=== PATIENT | female | born 1970 | race Caucasian/White ===

== ENCOUNTER 2020-10-07 20:03 | Outpatient (REF) | payer MEDICAID, OTHER, SELFPAY ==
--- NOTE | ~2020-10-07 | MR_ITS ---
EXAMINATION: MR ANGIOGRAPHY BRAIN WITHOUT CONTRAST CLINICAL INFORMATION: Cerebral aneurysm. COMPARISON: MRA head from 04/24/2017. TECHNIQUE: 3D [id number] MR angiography was performed through the brain without the use of intravenous gadolinium and axial source images were reviewed along with rotating MIPs. FINDINGS: Normal flow-related signal within the anterior circulation without evidence of focal stenosis or occlusion of the intradural internal carotid, middle cerebral, or anterior cerebral arteries. Normal flow-related signal within the posterior circulation without evidence of focal stenosis or occlusion of the intradural vertebral, basilar, superior cerebellar, or posterior cerebral arteries. Stable appearance of a 0.2 cm excrescence arising from the origin of the left posterior communicating artery. No additional intracranial aneurysms. No additional significant abnormalities on limited evaluation of the intracranial structures. MR/MR angio head wo con IMPRESSION: 1. 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 2. Otherwise, MRA of the head without proximal occlusion, flow-limiting stenosis, or additional intracranial aneurysm.
== END 2020-10-07 20:04 | disposition home or self-care (01) ==
LOC: HO.MRI 20:03
PROVIDERS: Visit Provider Pediatrics
DX: I67.1 Cerebral aneurysm, nonruptured (principal)
CPT/HCPCS: 70544

== ENCOUNTER 2021-08-14 11:10 | Emergency (ER) | payer MEDICAID, OTHER, SELFPAY ==
[2021-08-14 12:29] VITALS: BP 142/65; PULSE 64; RESP 18; TEMP 36.2; O2SAT 98; BMI 29.7
--- NOTE | 2021-08-14 17:45 | ED.BACK ---
HPI - Back Pain/Injury General Chief Complaint: Back Pain/Injury Stated Complaint: back pain Time Seen by Provider: 08/14/21 17:45 Source: patient Mode of arrival: ambulatory Limitations: no limitations History of Present Illness HPI Narrative: 50-year-old female no significant medical history presenting to the emergency department complaints of lower back pain times 2 days. Patient tells me that this started after she received a back massage and after lifting her grandchildren. She reports that the pain is to her lower back, feels like a tightness/discomfort. She tells me that when she moves it is worse and walking makes it worse, immobilization makes it better. She denies any spinal procedures, not an IV drug abuser. She denies numbness, tingling, bowel/urinary incontinence/retention, chest pain, shortness of breath, fevers, chills, nausea, vomiting, weakness, changes in urination. Denies recent trauma MD elicited complaint: back pain Timing: constant Severity: mild Quality: aching Location: lumbar spine Radiation: none Exacerbating factors: none Relieving factors: none Context: other (After massage) Associated symptoms: denies other symptoms Work related injury: No Related Data Previous Rx's Medication Instructions Recorded cyclobenzaprine 10 mg tablet 10 mg PO BEDTIME PRN #7 tab 08/14/21 lidocaine 5 % topical patch 1 patch TOPICAL DAILY PRN #15 ea 08/14/21 naproxen 500 mg tablet 500 mg PO BID PRN #14 tab 08/14/21 Allergies Allergy/AdvReac Type Severity Reaction Status Date / Time No Known Allergies Allergy Verified 08/14/21 12:28 Review of Systems Review of Systems: Constitutional : No Weight loss, No Fever, No Chills, No Fatigue, No Malaise ENT/Mouth : No sore throat, No Rhinorrhea Eyes: No Eye Pain, No Swelling, No Redness Cardiovascular : No Chest Pain, No SOB, No Dyspnea on Exertion, No Orthopnea, No Edema, No Palpitations Respiratory : No Cough, No Sputum, No Wheezing Gastrointestinal : No Nausea, No Vomiting, No Diarrhea, No Constipation, No abdominal Pain, No Hematochezia, No Melena Genitourinary : No Dysuria, No Urinary Frequency, No Hematuria, Musculoskeletal : + joint pain, No Myalgias, No Joint Swelling Skin : No Skin Lesions, No rash Neuro : No Weakness, No Numbness, No Dizziness, No Headache Psych : No Anxiety/Panic, No Depression All other systems reviewed and are negative Yes all other systems are reviewed and are negative [facility] Past Medical History Attestation statement: The following information was validated with the patient. Source: old records reviewed and nursing notes reviewed Social History Social History Advance Directives: No Advance Directives Information Provided: No Physical Exam Vital Signs: Vital Signs: Last Vital Signs Temp 97.1 F 08/14/21 12:29 Pulse 64 08/14/21 12:29 Resp 18 08/14/21 12:29 BP 142/65 H 08/14/21 12:29 Pulse Ox 98 08/14/21 12:29 BMI result Body Mass Index 29.7 Vital signs stable Appearance: Alert.? Oriented X3.? No acute distress.? Head: Normocephalic, atraumatic, no step-offs or deformities Eyes: Pupils equal, round and reactive to light.? ENT: Pharynx normal.? Neck: Normal inspection.? Neck supple.? CVS: Normal heart rate and rhythm.? Pulses normal.? Respiratory: No respiratory distress.? Breath sounds normal.? Abdomen: Soft and nontender.? Skin: Skin warm and dry.? Normal skin color.? Normal skin turgor.? Extremities: No lower extremity edema.? No calf ttp. 5/5 strength to bilateral upper and lower extremities Back: No midline tenderness, no C-spine tenderness, full range of motion, no CVA tenderness bilaterally + pain with palpation of paraspinous muscles in the lumbar region, no midline tenderness. Negative straight leg raise bilaterally. Neuro: Oriented X 3.? No motor deficit.? No sensory deficit. CN 2-12 intact . No saddle paresthesias. Bilateral patellar pulses 2+ equal bilateral. Proprioception intact. Course Reevaluation(s) Reevaluation #1: Patient given Toradol. Advised her to return with new or worsening symptoms. At this time I feel comfortable with discharge home. I also gave her referral to a specialist if pain continues. Comfortable discharge home with strict return precautions. Time: 17:59 MDM - Back Pain/Injury MDM Narrative Medical decision making narrative: 1748 50-year-old female presenting to the emergency department with back pain x2 days after receiving massage. Denies red flag symptoms. Physical examination significant for pain with palpation to paraspinous muscles in the lumbar region. No saddle paresthesias, 2+ equal reflexes to bilateral patella. Sensory and motor intact. Lungs clear. Regular rate and rhythm. Ambulating with steady gait. No focal neuro deficits. History and physical examination not consistent with cauda equina or epidural abscess. Likely muscle strain. Plan at this time is to discharge patient home with muscle relaxers and medication for pain. Will give her iM tordol Medical Records Attestation: I reviewed the patient's medical records. Lab Data Attestation: I reviewed the patient's lab results. Critical Care Time Critical Care Time Critical Care Time: No Discharge Plan Discharge Clinical Impression: Lower back pain Patient Disposition: Home, Self-Care Instructions: Acute Low Back Pain (ED), Back Pain (ED) Additional Instructions: Take your medications as prescribed. If you were prescribed antibiotics today, it is important that you take your medication to their entirety, do not skip any doses, do not finish them early. Follow-up with your primary care provider this week. Return to the emergency department with new or worsening symptoms. Such as fevers, chills, chest pain, shortness of breath, nausea, vomiting, dizziness, headache, vision changes, lethargy, numbness, tingling, loss of sensation to lower extremities, inability to control urine or stool. In case of emergency call 911 Prescriptions: New cyclobenzaprine 10 mg tablet 10 mg PO BEDTIME PRN (Reason: muscle spasm) Qty: 7 0RF lidocaine 5 % adhesive patch,medicated 1 patch topical DAILY PRN (Reason: pain) Qty: 15 0RF Rx Instructions: leave on most painful area for up to 12 hrs naproxen 500 mg tablet 500 mg PO BID PRN (Reason: pain) Qty: 14 0RF Rx Instructions: Take with food Referrals: Physician,Unknown J [Primary Care Provider] - 2 days Stand Alone Forms: Work/School Release
[2021-08-14] MEDS: Lidocaine 4 % Patch ADH..PATCH 1 PATCH TRANSDERMA (18:15)
[2021-08-14] MEDS: Ketorolac Tromethamine 15 MG/ML VIAL IM (18:15)
== END 2021-08-14 18:35 | disposition home or self-care (01) ==
LOC: HO.ED 18:05
PROVIDERS: Emergency Provider Emergency Medicine
DX: M54.50 Low back pain, unspecified (principal); Z79.899 Other long term (current) drug therapy
CPT/HCPCS: 96372; 99282; 99284; J1885